=== PATIENT | male | born 1995 | race Caucasian/White ===

== ENCOUNTER 2020-11-08 12:15 | Emergency (ER) | payer SELFPAY ==
[~2020-11-08] VITALS: Wt 63.6 kg
[2020-11-08] MEDS ORDERED: SERTRALINE HYD100 MG PO (12:29)
[2020-11-08 12:30] VITALS: BP 124/52
[2020-11-08] MEDS ORDERED: CEPHALEXIN250 MG PO (13:12)
== END 2020-11-08 13:31 | disposition home or self-care (01) ==
LOC: ED 12:15
DX: T33.521A Superficial frostbite of right hand, initial encounter (principal); F41.9 Anxiety disorder, unspecified; F32.9 Major depressive disorder, single episode, unspecified; F17.200 Nicotine dependence, unspecified, uncomplicated; Z23 Encounter for immunization; X04.XXXA Exposure to ignition of highly flammable material, initial encounter; Y92.009 Unspecified place in unspecified non-institutional (private) residence as the place of occurrence of the external cause; Y99.0 Civilian activity done for income or pay